=== PATIENT | male | born 1955 | race Caucasian/White ===

== ENCOUNTER 2017-08-01 07:09 | Day surgery (SDC) | payer BC ==
[2017-08-01] MEDS ORDERED: BUPIVACAINE 0.5% W/EPI MPF 30 ML VIAL IVP ONE (07:10)
[2017-08-01] MEDS ORDERED: PROPOFOL 10 MG/ML VIAL IV ONE (07:10)
[2017-08-01] MEDS ORDERED: KETOROLAC 30 MG/ML VIAL IVP ONE (07:10)
[2017-08-01] MEDS ORDERED: DEXAMETHASONE PRESERVATIVE FREE 10MG/ML VIAL IV ONE (07:10)
[2017-08-01] MEDS ORDERED: LIDOCAINE 1% W/EPI 1:200,000 MPF 30ML SQ ONE (07:10)
[2017-08-01] MEDS ORDERED: LIDOCAINE 1% MDV (10MG/ML) 20ML VIAL SQ ONE (07:10)
[2017-08-01] MEDS ORDERED: MIDAZOLAM HCL 2MG/2ML VIAL IV ONE (07:10)
--- NOTE | 2017-08-08 11:03 | Operative Note - [place] ---
DATE OF SURGERY: 08/01/17. PREOPERATIVE DIAGNOSIS: CERVICAL SPONDYLOSIS WITHOUT MYELOPATHY, ICD-10 CODE = M47.812. SURGERY: RADIOFREQUENCY RHIZOTOMY BILATERAL CERVICAL FACETS 4-5, 5-6, AND 6-7. SURGEON: JACEY HERRERA D.O. ANESTHESIA: LOCAL SEDATION. ANESTHESIA PROVIDER: SANTOSH DAVIES CRNA INDICATION: This patient presents with primary neck pain. Examination does show an area of tenderness in the cervical spine. Range of motion does produce pain in the neck with extension. Diagnostics show diffuse and multilevel spondylosis. A facet series with 75 to 85% pain control. Due to the failure of therapy and the success of the facet series, the patient presents today for rhizotomy for more long-term relief. SURGERY: Intravenous line, vital sign monitoring, IV sedation, prepped, draped , sterile technique. Cervical facet levels at 4-5, 5-6, and 6-7 marked bilaterally, infiltrated with local. A #22 gauge rhizotomy cannula was positioned. Stimulation trials conducted. Rhizotomy burn performed. Local with anti-inflammatory into the sites. Topical antibiotics. Sterile dressing applied. We will monitor and evaluate. cc: Dr. Nu Tong JOB NUMBER: [id number] MTDD
== END 2017-08-01 10:05 | disposition home or self-care (01) ==
LOC: SUR 07:09
PROVIDERS: ATTEND Pain Medicine Interventional Pain Medicine
DX: M47.812 Spondylosis without myelopathy or radiculopathy, cervical region (principal)
CPT/HCPCS: J1885